=== PATIENT | male | born 2005 | race Caucasian/White ===

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

== ENCOUNTER 2024-01-06 14:45 | Emergency (ER) | payer OTHER, BC, SELFPAY ==
[2024-01-06 14:46] VITALS: BP 146/85; PULSE 81; RESP 18; TEMP 36.2; O2SAT 100
--- NOTE | 2024-01-06 15:32 | ED.RN ---
Pt states i m feeling a lot better now and wants to leave. This RN expressed concern that his bleeding has been ongoing for several months. Pt states he has an egd scheduled on with Dr. Mullins and would like to leave. This RN encouraged pt to keep that appt.
== END 2024-01-06 15:30 | disposition left against medical advice (07) ==
LOC: ED 15:35
PROVIDERS: PCP Student in an Organized Health Care Education/Training Program
DX: Z53.21 Procedure and treatment not carried out due to patient leaving prior to being seen by health care provider (principal)
CPT/HCPCS: 93005

== ENCOUNTER 2024-01-08 06:00 | Day surgery (SDC) | payer OTHER, BC, SELFPAY ==
[2024-01-08] VITALS (7 sets, daily range): BP systolic 112–136; BP diastolic 72–78; PULSE 85–104; RESP 16–18; TEMP 36.8–37.2; O2SAT 95–99; BMI 33.8
--- NOTE | 2024-01-08 06:37 | PCM.HP.BLA ---
History and Physical Date of Admission: 01/08/[address], is a 18 M who presents to the office today for establishment with [facility]. Pt has a PMHx of Bipolar 1 disorder and generalized anxiety. He is here today for evaluation of nausea and vomiting since May 2023. He will get nauseous and vomit at least once per day; sometimes more. It is not associated with eating meals. He does have some heartburn that is controlled with pantoprazole. He has had constipation for the majority of his life so this it not concerning to him. He started Semaglutide 3 months ago and did not notice any worsening GI symptoms with the starting of this medication. ROS Const Constitutional: Positive for headache(s); No fatigue, fever(s) or weight change ENT ENT: Positive for headache(s); No difficulty swallowing Gastro GI: Positive for constipation, heartburn, Vomiting blood/hematemesis, nausea/dyspepsia and vomiting; No abdominal pain, belching, bloating, change in bowel habits, change in stool character, coffee ground emesis, cramping, diarrhea, difficulty swallowing, feeling full early, excessive flatus, incontinent of stools, Blood in stool, loose stools, Black,tarry stools, pain with swallowing or other Musc Musculoskeletal: No joint pain Skin Skin: Positive for itchy eyes and rash; No yellowing of the eye Neuro Neurology: Positive for headache(s) Psych Psychiatric: Positive for anxiety and Positive for depression Endo Endocrine: No fatigue or weight change Aller/Imm Allergy/Immunologic: Positive for itchy eyes [place]/Lymp Hematologic/Lymphatic: No easy bleeding or easy bruising Exam Const General: cooperative and comfortable Nutritional Appearance: average body habitus and well nourished [facility] Head: normal to inspection Ears: hearing grossly normal bilaterally Nose: external nose normal Face and sinus: normal facial exam Eyes General: appearance normal, both eyes and all related structures Neck Neck: normal visual inspection Chest Chest palpation & inspection: normal inspection of the chest Resp Effort & Inspection: normal respiratory effort GI Inspection: normal to inspection Palpation: no hepatosplenomegaly Skin General: no rashes or lesions noted Neuro General: patient alert Extrem General: normal to inspection Psych Affect: normal affect Assessment and Plan Assessment and Plan (1) Nausea & vomiting: Status: Acute Plan: Pt is a 18 yo male with PMHx of bipolar 1 disorder and anxiety here today for evaluation of nausea and vomiting. This has been going on since May of 2023. He does not note any major life changes or medication changes at that time. He started Semaglutide injections 3 months ago. He has not noticed any GI side effects from this medication. He is on numerous psychiatric medications that could contribute to n/v. He will undergo EGD to rule out esophagitis or gastritis. He may need a GES in the future to asses his stomach motility for gastroparesis. In the meantime he will continue taking pantoprazole and zofran as needed. -EGD -Continue pantoprazole -Zofran PRN -Consider GES -F/u in 3 months I have examined the patient and the H&P has been reviewed. There are no clinical changes since date of exam.
--- NOTE | 2024-01-08 06:38 | PCM.PRE.AN2 ---
ASA Classification* ASA Classification ASA Classification: 2 Assessment & Plan Anesthesia* Anesthesia Assessment Anesthesia Assessment: Discussed sedation and/or anesthesia options, risks, benefits, and alternatives with patient/parents/legal guardian/POA. Questions invited. The patient/parents/legal guardian/POA seems to understand and agrees to proceed with anesthesia plan. Reviewed the physical assessment, medical history, allergy history and patient home medications list prior to surgery/procedure/anesthetic and documented any changes. Performed airway and anesthesia risk assessments. Anesthesia Type Anesthesia Type: MAC Anesthesia Focused Assessment* Temperature: 98.9 F Pulse Rate: 89 Blood Pressure: 136/78 Respiratory Rate: 18 Pulse Ox: 99 Airway Assessment Mouth opens: >3 cm Mallampati Score: II Focused Labs Anesthesia Preop lab: CBC WBC 4.9 K/mm3 (4.4-11.0) 09/30/23 10:04 RBC 5.56 M/mm3 (4.6-6.2) 09/30/23 10:04 Hgb 16.0 g/dL (13.0-16.5) 09/30/23 10:04 Hct 46.1 % (40-54) 09/30/23 10:04 Plt Count 272 K/mm3 (150-450) 09/30/23 10:04 CHEMISTRY Potassium 3.5 mmol/L (3.5-5.1) 09/30/23 10:04 Sodium 138 mmol/L (136-145) 09/30/23 10:04 BUN 9 mg/dL (7-18) 09/30/23 10:04 Creatinine 1.19 mg/dL (0.70-1.30) 09/30/23 10:04 Glucose 109 mg/dL (74-106) H 09/30/23 10:04 TSH 1.37 uIU/mL (0.358-3.74) 09/30/23 10:04 COAG Pre-Assessment Diagnosis/Proposed Procedure Planned Operative Procedure(s): EGD Anesthesia History Anesthesia History - surgical resident: Anesthesia History - surgical resident Hx Hospitalization Yes 01/07/24 08:44 Any Problems With Anesthesia No 01/07/24 08:44 Cholinesterase deficiency No 01/07/24 08:44 You/Your Family Experience No 01/07/24 08:44 fever (hyperthermia) with Relationship Recent Exposure to Contagious No 01/08/24 06:26 Disease Does patient have nerve No 01/07/24 08:44 stimulator Patient instructed to have device shut off --Does patient have Pacemaker No 01/08/24 06:26 or ICD? When Was Last Pacemaker Check QUESTION #4 FULL TEXT: You/Your Family Experience fever (hyperthermia) with Anesthesia Last Oral Intake Last Oral intake: Last Oral Intake NPO since 00:00 01/08/24 06:26 Meds taken in AM with sips of No 01/08/24 06:26 water? Meds patient instructed to take am of surgery PONV PONV - surgical resident: PONV - surgical resident Female No 01/07/24 08:44 HX of Motion Sickness No 01/07/24 08:44 HX of N/V After Surgery No 01/07/24 08:44 Non-Smoker No 01/07/24 08:44 Duration of Surgery greater No 01/07/24 08:44 than 60 minutes Number of Risk Factors PONV Score Height & Weight Height & Weight: Anesthesia: Height & Weight Height 5 ft 7 in 01/08/24 06:26 Weight: 98 kg 01/08/24 06:26 Body Mass Index (BMI) 33.8 01/08/24 06:26 Respiratory Assessment Respiratory Assessment - surgical resident: Respiratory Tract Infection Hx - surgical resident Hx Respiratory Tract Infection No 01/07/24 08:44 STOP Sleep Apnea STOP Sleep Apnea - surgical resident: STOP Sleep Apnea - surgical resident Hx Hypertension No 01/07/24 08:44 Hx Sleep Apnea No 01/07/24 08:44 CPAP BIPAP Do you snore loudly (louder No 01/07/24 08:44 than talking or can be heard Do you often feel tired/ No 01/07/24 08:44 fatigued/ sleepy during daytime? Has anyone observed you stop No 01/07/24 08:44 breathing during sleep? STOP Results Negative 01/07/24 08:44 QUESTION #5 FULL TEXT : Do you snore loudly (louder than talking or can be heard through closed doors)? 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 Specify any problems Hx of Preganancy in last 3 N/A 01/07/24 08:44 Months Nurse Filling Out Transfusion VCHRISTIN 01/07/24 08:44 & Questions: Date: 01/07/24 01/07/24 08:44 Time: 08:45 01/07/24 08:44 Patient unable to answer at this time (ie. confused, unrespo /Reproduction History /Reproductive History - surgical resident: /Reproductive Hx- surgical resident Hx Now No 01/07/24 08:44 Gestational Age (in weeks): EDC: Hx Hx Para Hx Section SAB No 01/07/24 08:44 PFSH Medical History Wears glasses Wears contact lenses Depression Anxiety Alcohol use Kidney stones Migraine headache Gastric reflux Vapes nicotine containing substance Panic disorder Bipolar 1 disorder, depressed, severe Home Medications ?Medication ?Instructions ?Recorded ?Last Taken ?Type emtricitabine 200 mg-tenofovir 1 tab PO Q24H 02/12/23 01/07/24 History disoproxil fumarate 300 mg tablet SEMAGLUTIDE-B12 1 mg subcut QWEEK 11/06/23 01/02/24 History lorazepam 0.5 mg tablet 0.5 mg PO DAILY PRN anxiety #15 11/06/23 Unknown Rx tabs metformin 500 mg tablet 1,000 mg PO DAILY 11/06/23 01/07/24 History pantoprazole 40 mg tablet,delayed 40 mg PO QDAY 11/06/23 Unknown History release buspirone 7.5 mg tablet 7.5 mg PO BID #180 tabs 12/18/23 01/07/24 Rx cariprazine 4.5 mg capsule 4.5 mg PO DAILY 90 days #90 caps 12/18/23 01/07/24 Rx (Vraylar) lamotrigine 200 mg tablet 200 mg PO DAILY #30 tabs 12/18/23 01/07/24 Rx trazodone 50 mg tablet 50 - 100 mg (1 - 2 x 50 mg) PO QHS 12/18/23 01/07/24 Rx PRN PRN insomnia #60 tabs quetiapine 50 mg tablet (Seroquel) 50 mg PO QHS #30 tabs 12/31/23 Unknown Rx semaglutide 1 mg/dose (4 mg/3 mL) 1 mg subcut QWEEK 01/07/24 01/02/24 History subcutaneous pen injector Allergy/AdvReac Type Severity Reaction Status Date / Time escitalopram (From Lexapro) AdvReac Severe Other Verified 01/07/24 08:34 fluoxetine (From Prozac) AdvReac Severe Other Verified 01/07/24 08:34 Social History Smoking Status: Current every day smoker tobacco type: e-cigarettes alcohol intake: current Alcohol type: other details: Occasionally substance use type: does not use what type of physical activity do you participate in: none Review of Systems (Anesthesia) ROS Narrative System reviewed and no additional complaints, except as documented.
--- NOTE | 2024-01-08 07:15 | EGD_PTH ---
PATIENT: BAL LANE LOC: EN U#:[id number] AGE/SX: 18/M ROOM: RE01/08/[address]: Dr. Rayray Mullins DO : 2005 BED: DIS: 01/08/2024 SPEC #: [id number] RECD: 01/08/24 11:07 STATUS: BRYANNA ELY #: [id number] JESSICA: 01/08/24 07:[address]: Rayray Mullins DEPT: SURGICAL PATHOLOGY RECD BY: Natalie Hernandez ENTERED: 01/08/24 12:02 SP TYPE: EGD BIOPSY OT DR: Dr. Pj Salter DO Tissues: Esophagus, NOS Procedures: Surgery Specimen Level IV HEADER OPERATION: EGD with biopsy PRE-OP DIAGNOSIS: Nausea/vomiting TISSUE SUBMITTED: Random distal esophagus biopsy MICROSCOPIC DIAGNOSIS Distal esophagus, random biopsy: Fragments of benign squamous epithelium. See treva. 01/09/2024 COMMENT Increased number of eosinophils consistent with eosinophilic esophagitis are not seen. Correlation with clinical, endoscopic findings and appropriate follow-up are necessary. MICROSCOPIC DESCRIPTION Slides are reviewed. GROSS DESCRIPTION Received in fixative is one container labeled with the patient's name and designated Random distal esophagus biopsy. The specimen consists of multiple irregular fragments of light farmer soft tissue that in aggregate measure 1.0 x 0.5 x 0.1 cm. The specimen is totally submitted in one cassette. 01/08/2024 TC:5 CPT:32986
--- NOTE | 2024-01-08 07:34 | OP.EGD_ITS ---
Patient Name: Silvano Lovett Procedure Date: 01/08/2024 7:19 AM Date of : 2005 Age: 18 Procedure: Upper GI endoscopy Indications: Epigastric abdominal pain Providers: Rayray Mullins DO Medicines: Monitored Anesthesia Care Patient Profile: This is a 18 year old male. Refer to note in patient chart for documentation of history and physical. Patient has symptoms of chronic dyspepsia, chronic nausea and chronic vomiting. Complications: No immediate complications. Procedure: Pre-Anesthesia Assessment: - Prior to the procedure, a History and Physical was performed, and patient medications and allergies were reviewed. The patient is competent. The risks and benefits of the procedure and the sedation options and risks were discussed with the patient. All questions were answered and informed consent was obtained. Patient identification and proposed procedure were verified by the physician in the pre-procedure area. Mental Status Examination: alert and oriented. Airway Examination: normal oropharyngeal airway and neck mobility. Respiratory Examination: clear to auscultation. CV Examination: normal. Prophylactic Antibiotics: The patient does not require prophylactic antibiotics. Prior Anticoagulants: The patient has taken no anticoagulant or antiplatelet agents. ASA Grade Assessment: II - A patient with mild systemic disease. After reviewing the risks and benefits, the patient was deemed in satisfactory condition to undergo the procedure. The anesthesia plan was to use monitored anesthesia care (MAC). Immediately prior to administration of medications, the patient was re-assessed for adequacy to receive sedatives. The heart rate, respiratory rate, oxygen saturations, blood pressure, adequacy of pulmonary ventilation, and response to care were monitored throughout the procedure. The physical status of the patient was re-assessed after the procedure. After obtaining informed consent, the endoscope was passed under direct vision. Throughout the procedure, the patient's blood pressure, pulse, and oxygen saturations were monitored continuously. The Endoscope was introduced through the mouth, and advanced to the second part of duodenum. The upper GI endoscopy was accomplished without difficulty. The patient tolerated the procedure well. Scope In: 7:25:55 AM Scope Out: 7:28:15 AM Total Procedure Duration Time 0 hours 2 minutes 20 seconds Findings: A small hiatal hernia was present. LA Grade C (one or more mucosal breaks continuous between tops of 2 or more mucosal folds, less than 75% circumference) esophagitis with no bleeding was found 34 to 39 cm from the incisors. Biopsies were obtained from the proximal and distal esophagus with cold forceps for histology of suspected eosinophilic esophagitis. A large amount of food (residue) was found in the entire examined stomach. No gross lesions were noted in the duodenal bulb. Impression: - Small hiatal hernia. - LA Grade C erosive esophagitis with no bleeding. - A large amount of food (residue) in the stomach. - No gross lesions in the duodenal bulb. - Biopsies were taken with a cold forceps for evaluation of eosinophilic esophagitis. Recommendation: - Discharge patient to home. - Resume previous diet. - Continue present medications. - Await pathology results. Procedure Code(s): --- Professional --- 49314, Esophagogastroduodenoscopy, flexible, transoral; with biopsy, single or multiple CPT copyright 2021 [employer]. All rights reserved. The codes documented in this report are preliminary and upon automobile parker review may be revised to meet current compliance requirements. Rayray Mullins DO 01/08/2024 7:34:01 AM This report has been signed electronically. Number of Addenda: 0 Note Initiated On: 01/08/2024 7:19 AM
--- NOTE | 2024-01-08 07:35 | OP.CCLET_ITS ---
01/08/2024 Pj Salter [address] [place] [address] Re : Upper GI endoscopy procedure for Silvano Lovett Dear Dr. Salter This procedure was performed on December. My impressions and recommendations are as follows: Impressions : - Small hiatal hernia. - LA Grade C erosive esophagitis with no bleeding. - A large amount of food (residue) in the stomach. - No gross lesions in the duodenal bulb. - Biopsies were taken with a cold forceps for evaluation of eosinophilic esophagitis. Recommendations : - Discharge patient to home. - Resume previous diet. - Continue present medications. - Await pathology results. My findings are described in the full procedure note, which is enclosed. If I can be of further assistance, please feel free to contact me at . Sincerely, Rayray Mullins, 01/08/2024 7:34:01 AM This report has been signed electronically.
--- NOTE | 2024-01-08 07:40 | PCM.POST.ANE ---
Anesthesia: Postop Eval I Current Vital Signs Temperature: 98.2 F Pulse Rate: 96 Blood Pressure: 113/72 Respiratory Rate: 16 Pulse Ox: 97 Oxygen Delivery Method: Room Air Assessment Airway patent: Yes Spontaneous unlabored respirations: Yes Mental status: Awake and Calm nausea: No Vomiting: No Anesthesia Complication: No Fluid Hydration Crystalloid volume administer (ml): 30 Total IV fluid infused: 30 Progress Note Anesthesia document: Postop Eval 1 completed: Yes
--- NOTE | 2024-01-08 08:32 | PCM.POSTANE2 ---
Anesthesia Postop Eval I Sum Postop Eval Completion status Anesthesia document: Postop Eval 1 completed: Yes Anesthesia Postop Eval I Summary Anesthesia Postop Eval I Summary: Anesthesia Postop Eval I: Assessment Summary Airway patent Yes 01/08/24 07:41 [email or web address] Spontaneous unlabored Yes 01/08/24 07:41 [email or web address] respirations Mental status Awake,Calm 01/08/24 07:41 [email or web address] nausea No 01/08/24 07:41 [email or web address] Vomiting No 01/08/24 07:41 [email or web address] Anesthesia Postop Eval I: Fluid Summary Crystalloid volume administer 30 01/08/24 07:41 [email or web address] (ml) Colloids volume administered ( ml) Blood Product volume administered (ml) Total IV fluid infused 30 01/08/24 07:41 [email or web address] Anesthesia Postop Eval I: Summary Notes Anesthesia Complication No 01/08/24 07:41 [email or web address] Anesthesia Complication Comment: Post-operative progress note Anesthesia: Postop Eval II Evaluation Mental status: Awake Pain Level: 0 nausea: No Vomiting: No
== END 2024-01-08 07:57 | disposition home or self-care (01) ==
LOC: EN 06:01 → AC 06:02
PROVIDERS: PCP Student in an Organized Health Care Education/Training Program; Referring Provider Student in an Organized Health Care Education/Training Program; Visit Provider Internal Medicine Gastroenterology
PROC: 0DJ08ZZ Inspection of Upper Intestinal Tract, Via Natural or Artificial Opening Endoscopic (ICD-10-PCS; CPT 43235; principal; 2024-01-08 07:10)
DX: K22.10 Ulcer of esophagus without bleeding (principal); K44.9 Diaphragmatic hernia without obstruction or gangrene; K21.9 Gastro-esophageal reflux disease without esophagitis; K59.09 Other constipation; F17.290 Nicotine dependence, other tobacco product, uncomplicated; Z79.899 Other long term (current) drug therapy
CPT/HCPCS: 43239; 88305; 88312; A4216; J2405

== ENCOUNTER → 2024-07-14 | Outpatient (CLI) | payer OTHER, BC, SELFPAY ==
[2024-07-14 13:22] LABS: Hemoglobin A1c 5.1 % (<=5.6)
[2024-07-14 13:29] LABS: ALB/GLOB Ratio 1.5 RATIO (0.9-2.4); AST(SGOT) 38 U/L (<=37); Alanine Aminotransfer ALT/SGPT 60 U/L (<=46); Albumin, Serum 4.5 g/dL (3.5-5.0); Alkaline Phosphatase 78 U/L (40-129); Anion Gap 12 (5-15); BUN 7 mg/dL (4-19); BUN/Creat Ratio 7.1 RATIO (10-20); Calcium,Total 9.4 mg/dL (7.6-11.0); Carbon Dioxide 23.2 mmol/L (21.0-32.0); Chloride 104 mmol/L (98-108); Cholesterol 172 mg/dL (<=190); Creatinine, Serum 1.02 mg/dL (0.70-1.20); EST Glomerular Filtration Rate 108 (>60); Globulin 3.1 g/dL (2.2-4.2); Glucose 113 mg/dL (70-99); High Density Lipoprotein 33 mg/dL; Low Density Lipoprotein Calc. 100 mg/dL; Potassium 3.8 mmol/L (3.3-5.1); Protein, Total 7.6 g/dL (5.9-8.4); Sodium Level 138 mmol/L (133-145); Total Bilirubin 0.56 mg/dL (0.00-1.30); Triglycerides 200 mg/dL; Very Low Density Lipoprotein 40 mg/dL (5-40); cholesterol:hdl ratio screen 5.29
[2024-07-19 17:08] LABS: Lamotrigine (Lamictal) Level 2.6 ug/mL (2.0-20.0)
== END | disposition home or self-care (01) ==
LOC: LAB 11:23
PROVIDERS: PCP Student in an Organized Health Care Education/Training Program; Referring Provider Nurse Practitioner Psychiatric/Mental Health; Visit Provider Nurse Practitioner Psychiatric/Mental Health
DX: F31.9 Bipolar disorder, unspecified (principal)
CPT/HCPCS: 36415; 80053; 80061; 82542; 83036

== ENCOUNTER → 2024-08-27 | Outpatient (CLI) | payer OTHER, BC, SELFPAY | END | disposition home or self-care (01) | LOC: LABSPEC 10:34 | PROVIDERS: PCP Student in an Organized Health Care Education/Training Program; Referring Provider Physician Assistant Surgical; Visit Provider Physician Assistant Surgical | DX: R82.90 Unspecified abnormal findings in urine (principal) | CPT/HCPCS: 87086 ==

== ENCOUNTER → 2024-09-21 | Outpatient (CLI) | payer OTHER, BC, SELFPAY ==
[2024-09-21 13:40] LABS: Hematocrit 44.1 % (40-54); Hemoglobin 15.1 g/dL (13.0-16.5); Immature Granulocytes Count 0.010 X10^3/uL (0.0-0.0); Mean Corp Hgb Conc 34.2 g/dL (32-36); Mean Corpuscular Volume 81.7 fL (80-94); Mean Platelet Vol. 11.1 fl (6.2-12.0); NRBC Flagged by Analyzer 0 % (0-5); Platelet Count 228 K/mm3 (150-450); RBC Distribution Width CV 13.0 % (11.6-14.6); RBC Distribution Width SD 38.4 fl (35.1-43.9); Red Blood Count 5.40 M/mm3 (4.6-6.2); White Blood Count 5.2 K/mm3 (4.4-11.0)
== END | disposition home or self-care (01) ==
LOC: LAB 12:53
PROVIDERS: PCP Student in an Organized Health Care Education/Training Program; Referring Provider Student in an Organized Health Care Education/Training Program; Visit Provider Student in an Organized Health Care Education/Training Program
DX: Z00.00 Encounter for general adult medical examination without abnormal findings (principal)
CPT/HCPCS: 36415; 84439; 84443; 85025

== ENCOUNTER 2024-09-22 13:18 | Outpatient (RCR) | payer OTHER, BC, SELFPAY | END 2024-10-07 23:59 | LOC: NS 13:18 | PROVIDERS: PCP Student in an Organized Health Care Education/Training Program; Referring Provider Student in an Organized Health Care Education/Training Program; Visit Provider Student in an Organized Health Care Education/Training Program | DX: Z71.3 Dietary counseling and surveillance (principal); E66.9 Obesity, unspecified; Z68.35 Body mass index [BMI] 35.0-35.9, adult | CPT/HCPCS: 97802 ==

== ENCOUNTER → 2024-11-09 | Outpatient (CLI) | payer OTHER, BC, SELFPAY ==
[2024-11-09 10:08] LABS: Hematocrit 45.6 % (40-54); Hemoglobin 15.5 g/dL (13.0-16.5); Mean Corp Hgb Conc 34.0 g/dL (32-36); Mean Corpuscular Volume 83.4 fL (80-94); Mean Platelet Vol. 10.8 fl (6.2-12.0); Platelet Count 239 K/mm3 (150-450); RBC Distribution Width CV 13.1 % (11.6-14.6); RBC Distribution Width SD 39.3 fl (35.1-43.9); Red Blood Count 5.47 M/mm3 (4.6-6.2); White Blood Count 4.6 K/mm3 (4.4-11.0)
[2024-11-09 11:38] LABS: AST(SGOT) 33 U/L (<=37); Alanine Aminotransfer ALT/SGPT 49 U/L (<=46); Albumin, Serum 4.8 g/dL (3.5-5.0); Alkaline Phosphatase 79 U/L (40-129); Anion Gap 12 (5-15); BUN 9 mg/dL (4-19); BUN/Creat Ratio 8.2 RATIO (10-20); Calcium,Total 9.7 mg/dL (7.6-11.0); Carbon Dioxide 26.1 mmol/L (21.0-32.0); Chloride 101 mmol/L (98-108); Globulin 3.0 g/dL (2.2-4.2); Glucose 98 mg/dL (70-99); Potassium 4.0 mmol/L (3.3-5.1)
[2024-11-09 11:39] LABS: CRP < 3.00 mg/L (0.0-3.0)
[2024-11-10 14:08] LABS: ANTINUCLEAR ANTIBODIES DIRECT Negative (Negative)
== END | disposition home or self-care (01) ==
LOC: LAB 09:05
PROVIDERS: PCP Student in an Organized Health Care Education/Training Program; Referring Provider Nurse Practitioner Family; Visit Provider Nurse Practitioner Family
DX: R07.89 Other chest pain (principal); R53.81 Other malaise; R11.2 Nausea with vomiting, unspecified; L50.9 Urticaria, unspecified
CPT/HCPCS: 36415; 80053; 83520; 85027; 85652; 86038; 86140; 86200; 86235; 86431

== ENCOUNTER 2024-11-25 17:32 | Outpatient (CLI) | payer OTHER, BC, SELFPAY ==
--- NOTE | 2024-11-25 17:35 | CT_ITS ---
PROCEDURE: CT BRAIN/HEAD WITHOUT CONTRAST 11/25/2024 REASON FOR EXAM: JEROD DISCOMPHORT TECHNIQUE: Procedure Code: CTBR Modality: CT Procedure: BRAIN/HEAD WITHOUT CONTRAST Coronal and Sagittal reconstruction series were provided. One or more dose reduction techniques were used (e.g., Automated exposure control, adjustment of the mA and/or kV according to patient size, use of iterative reconstruction technique. RADIATION DOSE SUMMARY: CTDlvol: 44.99 mGy DLP: 779.24 mGycm COMPARISON: None. FINDINGS: No acute intracranial hemorrhage, extra-axial collection, mass effect or acute infarct. Ventricles and subarachnoid spaces are normal in size. Unremarkable orbits. Intact skull base and calvarium. Clear paranasal sinuses and mastoid air cells. CT/Brain/Head without Contrast IMPRESSION: Normal head CT. Reading Location: [facility]
== END 2024-11-25 23:59 | disposition home or self-care (01) ==
LOC: CT 17:33
PROVIDERS: PCP Student in an Organized Health Care Education/Training Program; Referring Provider Nurse Practitioner Family; Visit Provider Nurse Practitioner Family
DX: R07.89 Other chest pain (principal); R53.81 Other malaise; R11.2 Nausea with vomiting, unspecified; L50.9 Urticaria, unspecified
CPT/HCPCS: 70450